=== PATIENT | female | born 1980 | race Caucasian/White ===

== ENCOUNTER → 2016-05-18 | Outpatient (CLI) | payer BC ==
[~2016-05-18] MED LIST: ANTIHISTAMINE25 M1 PO; COMPAZINE10 MG PO; DECADRON4 MG PO; DEXAMETHASONE2 MG PO; DILAUDID2 MG PO; ENDOCET 5-3251 EACH PO; HAIR, SKIN AND1 EACH PO; K-DUR10 MEQ PO; LOMOTIL TABLET1 EACH PO; MOTRIN800 MG PO; POTASSIUM CHLO10 ME4 PO; PREDNISONE5 MG PO; RANITIDINE HCL150 MG PO; TYLENOL PM1 CAPLET PO; VITAMIN D-32000 UNI2 PO; VITAMIN D32000 UNI1 PO; ZANTAC150 MG PO; ZOFRAN8 MG PO; [UNRECOGNIZED DRUG - OTHER] PO
== END | disposition home or self-care (01) ==
LOC: EKG 12:57
DX: Z51.81 Encounter for therapeutic drug level monitoring (principal); Z79.899 Other long term (current) drug therapy; C50.919 Malignant neoplasm of unspecified site of unspecified female breast
CPT/HCPCS: 93306

== ENCOUNTER → 2016-09-16 | Outpatient (CLI) | payer BC ==
[~2016-09-16] MED LIST changes: +TAMOXIFEN CITRA20 MG PO
== END | disposition home or self-care (01) ==
LOC: EKG 13:00
DX: Z92.21 Personal history of antineoplastic chemotherapy (principal); C50.919 Malignant neoplasm of unspecified site of unspecified female breast
CPT/HCPCS: 93306

== ENCOUNTER 2017-06-21 06:26 | Day surgery (SDC) | payer BC ==
[~2017-06-21] VITALS: Ht 172.7 cm; Wt 70.2 kg
[~2017-06-21 06:26] MED LIST changes: +PROBIOTIC1 EAC1 PO
[2017-06-21 07:04] VITALS: BP 108/69
[2017-06-21 07:32] VITALS: BP 108/69
[2017-06-21] MEDS ORDERED: MOTRIN800 MG PO (10:50)
[2017-06-21] MEDS ORDERED: ENDOCET 5-3251 EACH PO (10:50)
[2017-06-21 12:21] VITALS: BP 123/65
[2017-06-21 13:10] VITALS: BP 122/70
[2017-06-21 15:55] VITALS: BP 117/66
== END 2017-06-21 16:15 | disposition home or self-care (01) ==
LOC: SDC 06:26
DX: N72 Inflammatory disease of cervix uteri (principal); N92.0 Excessive and frequent menstruation with regular cycle; Z85.3 Personal history of malignant neoplasm of breast; N83.202 Unspecified ovarian cyst, left side; N83.201 Unspecified ovarian cyst, right side; Z79.810 Long term (current) use of selective estrogen receptor modulators (SERMs); Z90.13 Acquired absence of bilateral breasts and nipples
CPT/HCPCS: J0131; J0690; J1100; J1170; J1885; J2250; J2405; J2710; J3010; J7643; Q0175; S0020